=== PATIENT | male | born 1975 | race Caucasian/White ===

== ENCOUNTER 2016-11-17 22:09 | Emergency (ER) | payer SELFPAY ==
[2016-11-17 22:22] VITALS: BP 176/93; RESP 18; TEMP 98.8
[2016-11-17] MEDS ORDERED: IPRATROPIUM/ALBUTEROL 3 ML DEYVIAL ONE (22:26)
[2016-11-17] MEDS ORDERED: IPRATROPIUM/ALBUTEROL 3 ML DEYVIAL IH ONE (22:29)
--- NOTE | 2016-11-17 22:51 | EDPHY ---
H & P Stated Complaint: SOB ASTHMA ATTACK Time Seen by Provider: 11/17/16 22:37 HPI/ROS: Chief Complaint: Wheezing HPI: 41-year-old male with a history of asthma who is visiting from [facility] started having wheezing tonight. He has used his rescue inhaler with minimal relief. He does not use a spacer with. He has used Advair in the past and started using Advair today but is not using it regularly. States that he gets an exacerbation once or twice a year which she uses the Advair and albuterol. Denies any fevers or chills. No cough. Has not been taking any elevation above [place]. Frequently goes to elevation back abrasion on the without any difficulties. Patient was given albuterol neb by nursing staff prior to my evaluation and states that he feels 100% better. ROS: 10 point Review of Systems is negative except as noted in the HPI. PMH: Asthma Medications: Advair, albuterol rescue inhaler Social History: No smoking, no alcohol, no recreational drug use Family History: non-contributory Physical Exam: Gen: Awake, Alert, No Distress HEENT: Nose: no rhinorrhea Eyes: PERRLA, EOMI Mouth: Moist mucosa Neck: Supple, no JVD Chest: nontender, lungs clear to auscultation Heart: S1, S2 normal, no murmur Abd: Soft, non-tender, no guarding Back: no CVA tenderness, no midline tenderness Ext: no edema, non-tender Skin: no rash Neuro: CN II-XII intact, Sensation grossly intact, Strength 5/5 in bilateral upper and lower extremities - Personal History Current Tetanus/Diphtheria Vaccine: Yes Current Tetanus Diphtheria and Acellular Pertussis (TDAP): Yes - Medical/Surgical History Hx Asthma: Yes Hx Chronic Respiratory Disease: No Hx Diabetes: No Hx Cardiac Disease: No Hx Renal Disease: No Hx Cirrhosis: No Hx Alcoholism: No Hx HIV/AIDS: No Hx Splenectomy or Spleen Trauma: No Other PMH: ASTHMA - Social History Smoking Status: Never smoked Constitutional: Initial Vital Signs Temperature (C) 37.1 C 11/17/16 22:10 Heart Rate 91 11/17/16 22:10 Respiratory Rate 18 11/17/16 22:10 Blood Pressure 176/93 H 11/17/16 22:10 O2 Sat (%) 94 11/17/16 22:10 O2 Delivery Mode Room Air Allergies/Adverse Reactions: No Known Allergies Allergy (Unverified 11/17/16 22:13) Home Medications: Medication Instructions Recorded Albuterol Sulfate [Ventolin Hfa] 18 gm IH 11/17/16 Fluticasone/Salmeter 100/50Mcg 11/17/16 [Advair 100/50 (*)] Medical Decision Making ED Course/Re-evaluation: 41-year-old male presenting with an asthma exacerbation. He is completely cleared with 1 nebulizer treatment. I have given him an MDI spacer for his inhaler at home. He will continue using his Advair and his rescue inhaler as needed. He will return for any concerns, otherwise he will follow up with his primary care physician returns - Data Points Medications Given: Discontinued Medications Albuterol/Ipratropium (Duoneb) 3 ml IH EDNOW ONE Stop: 11/17/16 22:30 Last Admin: 11/17/16 22:32 Dose: 3 ml Departure - Departure Disposition: Home, Routine, Self-Care Clinical Impression: Exacerbation of asthma Condition: Good Instructions: Asthma (ED) Additional Instructions: Continue using your control inhaler. May usual rescue inhaler 2 puffs every 4 hours as needed for wheezing. Always use a spacer with your rescue inhaler. Follow up with your doctor when you return home next week. Referrals: NONE *PRIMARY CARE P,. [Primary Care Provider] - As per Instructions
[2016-11-17 22:59] VITALS: PULSE 95; O2SAT 96
== END 2016-11-17 23:00 | disposition home or self-care (01) ==
DX: J45.901 Unspecified asthma with (acute) exacerbation (principal)